=== PATIENT | female | born 1990 | race Caucasian/White ===

== ENCOUNTER → 2022-12-19 10:59 | Outpatient (CLI) | payer OTHER, SELFPAY ==
--- NOTE | 2022-12-19 11:01 | DI.US.S_ITS ---
PROCEDURE: US OB <= 14 WEEKS FETUS INDICATIONS: DATING OUTSIDE/PRIOR DATING DATA: Last menstrual period (LMP): 09/07/2022 LMP-based estimated date of delivery (GERRI): 06/14/2023 First dating scan (date and location): 12/19/2022 Estimated date of delivery (GERRI) from first dating scan: 07/08/2023 The calculations are made using the working GERRI of 07/08/2023. TECHNIQUE: Real-time scanning was performed of the fetus and maternal pelvic organs, with image documentation. COMPARISON: None. FINDINGS: Embryo: Single intrauterine gestational sac is seen with fetus and yolk sac seen. [place]-rump length measures 4.5 cm. Estimated gestational age based on current study is 11 weeks, 2 days. Heart rate: 153 beats per minute. Maternal organs: Left ovary is not visualized. Possible corpus luteum in right ovary is seen. IMPRESSION: 1. Single intrauterine gestation with fetus and yolk sac seen. heart rate is 153 beats per minute. Estimated gestational age based on current study is 11 weeks, 2 days. 2. Possible corpus luteum in right ovary. No adnexal mass or ectopic gestational sac. We strive to produce accurate, complete, and clear reports of imaging services. To assist us in improving patient care, this report was composed using standard report templates and voice recognition software. Therefore, it may contain abnormal punctuation, insertions and/or omissions. Occasional wrong-word or sound-alike substitutions may occur. Though we review the report and make efforts to correct it, we do recommend that the report be read carefully in proper context to recognize any text inaccuracies. Dictated by: Junior Lewis M.D. on 12/19/2022 at 13:11 Approved by: Junior Lewis M.D. on 12/19/2022 at 13:13
== END ==
PROVIDERS: Referring Provider Family Medicine; Visit Provider Family Medicine
DX: Z34.81 Encounter for supervision of other normal pregnancy, first trimester (principal); Z3A.11 11 weeks gestation of pregnancy
CPT/HCPCS: 76801; 76817

== ENCOUNTER → 2022-12-26 10:28 | Outpatient (CLI) | payer OTHER, SELFPAY ==
[2022-12-26 11:35] LABS: Add Manual Diff / Slide Review NO; Basophils Absolute Auto 0 /uL (0-100); Basophils Percent Auto 0.5 % (0-2); Eosinophils Absolute Auto 0 /uL (0-450); Eosinophils Percent Auto 0.4 % (2-4); Hematocrit 34.8 % (36-46); Hemoglobin 11.8 g/dL (12.0-16.0); Lymphocytes Absolute Auto 1500 /uL (1100-4500); Lymphocytes Percent Auto 16.4 % (25-40); Mean Corpuscular HGB Conc 33.9 % (30-36); Mean Corpuscular Hemoglobin 28.2 PG (26-34); Mean Corpuscular Volume 83.2 fL (80-100); Monocytes Absolute Auto 400 /uL (0-900); Monocytes Percent Auto 4.9 % (3-14); Neutrophils Absolute Auto 7200 /uL (1500-7000); Neutrophils Percent Auto 77.8 % (50-75); Platelet Count 328 X10^3/uL (150-400); Red Blood Cell Count 4.18 X10^6/uL (4.0-5.2); Red Cell Distribution Width 16.6 % (11.6-14.8); White Blood Cell Count 9.2 X10^3/uL (4.5-11.0)
[2022-12-26 12:13] LABS: Appearance Urine UA CLEAR; Bilirubin Urine UA NEGATIVE (NEGATIVE); Color Urine UA YELLOW; Glucose Urine UA NEGATIVE (Negative); Ketones Urine UA NEGATIVE (NEGATIVE); Leukocyte Esterase Urine UA NEGATIVE (NEGATIVE); Nitrite Urine UA NEGATIVE (Negative); Occult Blood Urine UA NEGATIVE (Negative); Protein Urine UA NEGATIVE (Negative)
[2022-12-26 12:16] LABS: pH Urine UA 6.5 (4.5-8.0)
[2022-12-26 12:34] LABS: Hepatitis B Surface Antigen NEGATIVE s/c (NEGATIVE); Rubella Antibody IgG 32.9 IU/mL (>15)
[2022-12-26 12:51] LABS: HIV 1 & 2 Ab/Ag 4th Gen Combo NEGATIVE (NEGATIVE); Hep C Virus Ab w/Reflex Quant NEGATIVE s/c (NEGATIVE)
[2022-12-27 04:42] LABS: RPR Screen Non Reactive (Non Reactive)
[2022-12-27 10:27] LABS: Varicella IgG Antibody 817 index (Immune >165)
== END ==
PROVIDERS: Referring Provider Specialist; Visit Provider Specialist
DX: Z34.81 Encounter for supervision of other normal pregnancy, first trimester (principal)
CPT/HCPCS: 36415; 80055; 81003; 86787; 86803; 86850; 86900; 86901; 87086; 87389

== ENCOUNTER → 2023-02-24 14:59 | Outpatient (CLI) | payer OTHER, SELFPAY ==
--- NOTE | 2023-02-24 15:00 | DI.US.S_ITS ---
PROCEDURE: US OB >= 14 WEEKS FETUS INDICATIONS: 20 WEEK ANATOMY SCAN OUTSIDE/PRIOR DATING DATA: Last menstrual period (LMP): 09/07/2022. LMP-based estimated date of delivery (GERRI): 06/14/2023. First dating scan (date and location): 12/19/2022. Estimated date of delivery (GERRI) from first dating scan: 07/08/2023. TECHNIQUE: Real-time scanning was performed of the fetus, with image documentation and biometric measurements. Endovaginal scanning: No COMPARISON: [facility], , OB <= 14 WEEKS FETUS, 12/19/2022, 11:06. FINDINGS: General: A single living intrauterine gestation is present. Presentation: Vertex. Placenta: Placental position is posterior , without previa. Amniotic fluid index: 14.9 cm, normal range is 5-24 cm. Single deepest vertical pocket is 3.6 cm. heart rate: 127 beats per minute. Maternal cervical canal: 4.4 cm long. Normal lower limit is 2.5 cm. biometrics: Biparietal diameter: 52 mm; 21 weeks 5 days Head circumference: 190 mm; 21 weeks 2 days Abdominal circumference: 162 mm; 21 weeks 2 days Femur length: 35 mm; 21 weeks 0 days Clinically estimated gestational age: 20 weeks 6 days Composite gestational age from present scan: 21 weeks 2 days Estimated weight and percentile: 407 g, 65th percentile for gestational age Anatomic survey: Neuro: Ventricles are non-dilated at less than 10 mm. Cisterna magna is normal at 3-11 mm. Cerebellum is normal in size and morphology. Nuchal skin fold: Normal at less than 6 mm between 14-21 weeks gestational age. Face: Nose and lips, facial profile are normal. Spine: No evidence for spina bifida. Heart: Not well seen Diaphragm: Diaphragm is intact. Stomach: Left-sided stomach is present. Kidneys: No hydronephrosis. Normal is less than 5 mm in 2nd trimester, less than 7 mm in 3rd trimester. Cord: 3-vessel cord has orthotopic insertion. Bladder: Normal in size. Extremities: All 4 extremities identified. IMPRESSION: 1. Single living intrauterine gestation. 2. Suboptimal evaluation of the heart and outflow tracts. Otherwise normal survey of anatomy. We strive to produce accurate, complete, and clear reports of imaging services. To assist us in improving patient care, this report was composed using standard report templates and voice recognition software. Therefore, it may contain abnormal punctuation, insertions and/or omissions. Occasional wrong-word or sound-alike substitutions may occur. Though we review the report and make efforts to correct it, we do recommend that the report be read carefully in proper context to recognize any text inaccuracies. Dictated by: Lisa Ying M.D. on 02/24/2023 at 16:29 Approved by: Lisa Ying M.D. on 02/24/2023 at 16:31
== END ==
PROVIDERS: Referring Provider Family Medicine; Visit Provider Family Medicine
DX: Z36.89 Encounter for other specified antenatal screening; Z3A.21 21 weeks gestation of pregnancy
CPT/HCPCS: 76811

== ENCOUNTER → 2023-03-14 16:42 | Outpatient (CLI) | payer OTHER, SELFPAY ==
--- NOTE | 2023-03-14 16:43 | DI.US.S_ITS ---
PROCEDURE: US OB FOLLOW UP INDICATIONS: suboptimal view of heart and outflow on 20week anatomy scan OUTSIDE/PRIOR DATING DATA: Last menstrual period (LMP): 09/07/2022. LMP-based estimated date of delivery (GERRI): 06/14/2023. First dating scan (date and location): 12/19/2022. Estimated date of delivery (GERRI) from first dating scan: 07/08/2023. The calculations are made using the ultrasound GERRI of 07/08/2023. TECHNIQUE: Real-time scanning was performed of the fetus, with image documentation. COMPARISON: OB ultrasound 02/24/2023. FINDINGS: General: A single living intrauterine gestation is present. Presentation: Breech, variable. Placenta: Placental position is posterior, without previa. Amniotic fluid index: 12 cm, normal range is 5-24 cm. Single deepest vertical pocket is 3.5 cm. heart rate: 123 beats per minute. Maternal cervical canal: 3.4 cm long. Normal lower limit is 2.5 cm. Clinically estimated gestational age: 23 weeks 3 days Other: Four-chamber heart view, RVOT, and LVOT appear normal. IMPRESSION: 1. [place] living intrauterine at 23 weeks 3 days based on prior dating. 2. Normal placenta and amniotic fluid. 3. Four-chamber heart view, RVOT, and LVOT appear normal. We strive to produce accurate, complete, and clear reports of imaging services. To assist us in improving patient care, this report was composed using standard report templates and voice recognition software. Therefore, it may contain abnormal punctuation, insertions and/or omissions. Occasional wrong-word or sound-alike substitutions may occur. Though we review the report and make efforts to correct it, we do recommend that the report be read carefully in proper context to recognize any text inaccuracies. Dictated by: Russ Ramey M.D. on 03/15/2023 at 9:41 Approved by: Russ Ramey M.D. on 03/15/2023 at 9:48
== END ==
PROVIDERS: Referring Provider Family Medicine; Visit Provider Family Medicine
DX: Z36.2 Encounter for other antenatal screening follow-up (principal); Z3A.23 23 weeks gestation of pregnancy
CPT/HCPCS: 76816

== ENCOUNTER → 2023-03-29 10:55 | Outpatient (CLI) | payer OTHER, SELFPAY ==
[2023-03-29 13:09] LABS: GTT (PREG) 1 Hour PP 50gm Dose 141 mg/dL (76-139)
== END ==
PROVIDERS: Referring Provider Family Medicine; Visit Provider Family Medicine
DX: Z34.92 Encounter for supervision of normal pregnancy, unspecified, second trimester (principal); Z3A.24 24 weeks gestation of pregnancy
CPT/HCPCS: 36415; 82950

== ENCOUNTER → 2023-04-06 07:56 | Outpatient (CLI) | payer OTHER, SELFPAY ==
[2023-04-06 09:58] LABS: Glucose Fasting 87 mg/dL (70-100)
[2023-04-06 10:13] LABS: Glucose 1 Hour 197 mg/dL (70-170)
[2023-04-06 11:34] LABS: Glucose 2 Hour 128 mg/dL (70-140)
[2023-04-06 13:17] LABS: Glucose Tol Interpretation INTERPRETATION
[2023-04-06 13:26] LABS: Glucose 3 Hour 130 mg/dL (70-115)
== END ==
PROVIDERS: Referring Provider Student in an Organized Health Care Education/Training Program; Visit Provider Student in an Organized Health Care Education/Training Program
DX: O99.810 Abnormal glucose complicating pregnancy (principal)
CPT/HCPCS: 36415; 82951; 82952

== ENCOUNTER → 2023-04-21 10:24 | Outpatient (CLI) | payer OTHER, SELFPAY ==
--- NOTE | 2023-04-21 11:34 | DIAB.GDA ---
Initial Gestational Diabetes Assessment Name: Maria Atwood Date: 04/21/23 Time: 4850-8040a Dx: Gestational Diabetes Provider: Pankaj GERRI: 07/08/23 Weeks: 29 Maria presents for GDM initial visit with partner, Alison. Reports FH of GDM sister, no other immediate family DM hx. Denies any personal hx of DM or GDM. Endorses reduction in sugar with avoiding candy and soda. Does have some clear sodas to help with nausea. Has greatly decreased carb portions since diagnosis, ie 3-4c pasta to 1.5c. With reduced carb portions most BG are in goal. Nausea impacting dietary intake and choices. Choosing small meals due to nauseas and reflux. Diet Recall: 9am: beef jerky or muffin or small portion chips or bagel with cream cheese or breakfast burrito +/- coffee 12-2p: salad with chicken and small [place] OR burger with handful of fries 6-7p: 1.5c carbs with protein and veggies Beverages: 32oz x 3-4, 6-12oz clear soda for nausea Anthropometrics: Ht: 66 Wt: 181# 6oz Prepregnancy wt: 160# Physical Activity: No exercise program. ADLs include walking and stairs at work Self-Monitoring Blood Glucose: Checking 4x per day: FBG and 1 hour. States provider mentioned reduced testing if BG are consistently in goal, which this RD supports if numbers continue in goal. All numbers are consistently in goal, with exception to two elevated after breakfast readings (ie black coffee and burrito = 148mg/dl). Date Pre Post Pre Post Pre Post HS 04/18 90 148 90 78 04/19 90 148 90 78 04/20 87 120 98 93 04/21 80 Diabetes Medications: None Pertinent Labs: Screen: 141 H ; OGTT: 87, 197 H, 128, 130H Nutrition Rx: Plate Method Carbohydrates: Meal: 45-60g lunch and dinner; 30-45g breakfast Snack: 15-30g Nutrition Diagnosis: Altered nutrition related lab value r/t GDM dx aeb recent OGTT Inconsistent energy intake r/t nausea and emesis aeb pt report Intervention: This participant was very receptive. Provided appropriate educational handouts. Discussed the following topics: GDM pathophysiology and impact of hyperglycemia on mom and baby Risk for T2DM for mom and baby in the future Ways to reduce risk T2DM Plate Method, meal timing, carb counting, pairing macronutrients and spreading out CHO for better BG management Blood glucose goals (FBG: <95 and 1 hour <140 mg/dL); importance of checking 4x per day (FBG and pc) Impact of macronutrients on blood glucose Recommended servings for carbohydrates at meals and snacks Recommendations for intake with nausea: choosing bars/shakes prn Potential impact of sugar beverages on BG Weight gain during Role of physical activity and following provider guidelines for safety Goals: Pair CHO and protein at meals and snacks Find ways to be active Aim for 45-60g CHO at lunch and dinner Follow-up: LOBITO VALDEZ follow-up in two weeks Jeanine Lindquist RDN, JOSÉ MIGUEL Certified Diabetes Care and Assisted Living Coordinator T: [phone] F: [phone] [email or web address] Thank you for this referral
== END ==
PROVIDERS: Referring Provider Family Medicine; Visit Provider Family Medicine
DX: O24.419 Gestational diabetes mellitus in pregnancy, unspecified control (principal); Z3A.29 29 weeks gestation of pregnancy; Z71.3 Dietary counseling and surveillance
CPT/HCPCS: 97802

== ENCOUNTER → 2023-05-05 09:39 | Outpatient (CLI) | payer OTHER, SELFPAY ==
--- NOTE | 2023-05-05 10:45 | DIAB.GDFU ---
Follow-up Gestational Diabetes Assessment Name: Maria Atwood Date: 05/05/23 Time: 101030a Dx: Gestational Diabetes Provider: Pankaj GERRI: 07/08/23 Weeks: 31-32 Maria presents for GDM initial visit with partner, Alison. Reports increased BG, especially recent FBG >95. Endorses poor sleep r/t stress with exiting . Poor sleep likely impacting FBG quite a bit, along with increasing hormones as the progresses. Additionally, she report drinking more sugared soda recently due to nausea. Less actual meals lately and more soda could also be impacting elevated BG. Reports nausea, stress, and timing impacting her ability to eat full meals. Looking for quick easy ideas. Open to smoothies/pro shakes. Diet Recall: 12a: nothing or bag of chips or muffin 6-7p keena pasta x 1.5c, chx, green beans or nothing Anthropometrics: Ht: 66 Wt: 179.25# 04/28 at OB office Prepregnancy wt: 160# Physical Activity: No exercise program. Self-Monitoring Blood Glucose: Checking 4x per day: FBG and 1 hour. 2/ last few FBG elevated, 3/5 elevated post breakfast, 1/4 elevated post lunch, 4/6 elevated post dinner. Reports elevations with even 2 toast with butter meal (<40g CHO). Some higher carb intake, ie 1.5c pasta. Overall may be having elevations related to poor sleep, stress, hormones, some higher carb portions especially soda. Date Pre Post Pre Post Pre Post HS 04/27 90 136 165 166 04/28 81 121 123 141 04/30 91 156 98 121 05/01 86 118 127 05/02 95 159 156 05/04 104 159 151 05/05 154 Diabetes Medications: None Pertinent Labs: Screen: 141 H ; OGTT: 87, 197 H, 128, 130H Nutrition Rx: Plate Method Carbohydrates: Meal: 45-60g lunch and dinner; 30-45g breakfast Snack: 15-30g Nutrition Diagnosis: Altered nutrition related lab value r/t GDM dx aeb recent OGTT Inconsistent energy intake r/t nausea and emesis aeb pt report Intervention: This participant was very receptive. Provided appropriate educational handouts. Discussed the following topics: Recent blood sugar results and impact of food and hormones Review of macronutrient recommendations during Pros/cons to Metformin v insulin therapy during Impact of preg hormones and sleep on FBG SF recs on beverages Quick meal and smoothie ideas with pro Goals: Pair CHO and protein at meals and snacks- met/in progress Find ways to be active- not discussed Aim for 45-60g CHO at lunch and dinner- met when eating Switch to sf soda for nausea- new Try smoothie with protein- new Discuss med options or plan with OB today- new Follow-up: LOBITO VALDEZ follow-up in two weeks, sooner if needing insulin therapy education. Today we discussed options for medications if they are needed. Maria would prefer oral medications for Dm management. Encouraged her to discuss further with OB. In general, she is having quite a bit of stress and difficulty with sleep which she does not anticipate will subside soon. Given this, she may be at risk for continued hyperglycemia. Jeanine Lindquist RDN, SABAES Certified Diabetes Care and Lie Detector Operator T: [phone] F: [phone] [email or web address] Thank you for this referral
== END ==
PROVIDERS: Referring Provider Family Medicine; Visit Provider Family Medicine
DX: O24.419 Gestational diabetes mellitus in pregnancy, unspecified control (principal); Z3A.31 31 weeks gestation of pregnancy; Z71.3 Dietary counseling and surveillance
CPT/HCPCS: 97803

== ENCOUNTER → 2023-05-19 08:55 | Outpatient (CLI) | payer OTHER, SELFPAY ==
--- NOTE | 2023-05-19 09:35 | DIAB.GDFU ---
Addendum entered by Jeanine Lindquist 06/15/23 16:44: Note below missing date/time: Date: 05/19/2023 Time: 9-930am Addendum entered by Jeanine Lindquist 05/26/23 16:33: PHone call; 35 weeks now. Has reduced radha bar portions, keeping carbs to one cup at meals, and trying to add afternoon snack. Pairing bars with cheese. One elevated FBG after late night, poor sleep. Overall, BG well managed. Limited hyperglycemia over the last week. No questions at this time. F/u prn. Date Pre Post Pre Post Pre Post 05/20 87 108 150 100 05/21 102 126 132 108 05/22 92 124 167 77 05/23 83 140 134 127 05/24 82 166 124 131 05/25 91 74 104 124 05/26 91 87 106 Original Note: Follow-up Gestational Diabetes Assessment Name: Maria Atwood Date: Time: Dx: Gestational Diabetes Provider: Pankaj GERRI: 07/08/23 Weeks: 33-34 Maria presents for GDM f/u visit with partner, [place] and oldest son. Reports reduced fasting numbers, with exception for this morning. Did not sleep well. Woke up sweating. Did not check BG at that time. Reports high CHO intake with two radha bars (70g CHO) at breakfast and 75-90g CHO at lunch and dinner. Higher carb meals seem to be resulting in some elevations after meals. States she feels she is forcing herself to eat at dinner, so small portions should be an easy change. Started 500mg Metformin. N/V Se with starting med. most days taking with food. Metformin x 1 week. Plans to breastfeed. Scheduled c section 06/30/23. Anthropometrics: Ht: 66 Wt: 180# reported Prepregnancy wt: 160# Physical Activity: No exercise program. Self-Monitoring Blood Glucose: Checking 4x per day: FBG and 1 hour. 06/17 last few FBG elevated, 2/8 elevated post breakfast, 4/8 elevated post lunch, 1/7 elevated post dinner. Missing some data due to running out of strips. Date Pre Post Pre Post Pre Post HS 05/08 93 141 161 128 05/09 92 132 128 149 05/10 86 124 149 119 05/11 88 93 176 109 2 82 2/3 77 183 143 2/5 83 150 127 133 2/6 82 102 119 133 2/7 86 130 2/8 130 116 2/9 113 Diabetes Medications: 500mg Metformin Pertinent Labs: Screen: 141 H ; OGTT: 87, 197 H, 128, 130H Nutrition Rx: Plate Method Carbohydrates: Meal: 45-60g lunch and dinner; 30-45g breakfast Snack: 15-30g Nutrition Diagnosis: Altered nutrition related lab value r/t GDM dx aeb recent OGTT Inconsistent energy intake r/t nausea and emesis aeb pt report- improved Excessive CHO intake r/t nutrition knowledge deficit aeb diet recall and hyperglycemia Intervention: This participant was very receptive. Provided appropriate educational handouts. Discussed the following topics: Recent blood sugar results and impact of food and hormones Review of macronutrient recommendations during Benefits, resources, and nutrition for recommendations for nutrition and physical activity recommendations for T2DM risk reduction OGTT at 6-12 weeks Checking blood sugars twice per week (goal: fasting <100 mg/dL and 2 hour pc <140 mg/dL) until 6 week check-up HgA1c q 1-3 years. Encouraged consistent intake q 3-4 hours Encouraged aking Metformin with food consider BG check when waking up heavily sweating Goals: Switch to sf soda for nausea- met Try smoothie with protein- met Discuss med options or plan with OB today- met Keep radha bar to one per sitting- new Keep carbs to 1c at meals- new Add afternoon snack prn- new Follow-up: Asked Maria to send RD BG in one week for review. She agreed. States she feels she does not need further Dm ed follow-up thereafter. Will reevaluate after review of BG. Jeanine Lindquist RDN, [facility] Certified Diabetes Care and Urologist Physician T: [phone] F: [phone] [email or web address] Thank you for this referral
== END ==
PROVIDERS: Referring Provider Family Medicine; Visit Provider Family Medicine
DX: O24.415 Gestational diabetes mellitus in pregnancy, controlled by oral hypoglycemic drugs (principal); Z3A.33 33 weeks gestation of pregnancy; Z71.3 Dietary counseling and surveillance
CPT/HCPCS: 97803

== ENCOUNTER → 2023-05-23 10:02 | Outpatient (CLI) | payer OTHER, SELFPAY ==
--- NOTE | 2023-05-23 10:03 | DI.US.S_ITS ---
PROCEDURE: US OB LIMITED INDICATIONS: GESTATIONAL DIABETES - GROWTH CHECK OUTSIDE/PRIOR DATING DATA: Last menstrual period (LMP): 09/07/2022 LMP-based estimated date of delivery (GERRI): 06/14/2023 First dating scan (date and location): 12/19/2022 Estimated date of delivery (GERRI) from first dating scan: 07/08/2023. The calculations are made using the ultrasound GERRI of 07/08/2023. TECHNIQUE: Real-time scanning was performed of the fetus, with image documentation and biometric measurements. Endovaginal scanning: Not performed. COMPARISON: [facility], OB FOLLOW UP, 03/14/2023, 16:54. FINDINGS: General: A single living intrauterine gestation is present. Presentation: Vertex Placenta: Placental position is posterior, without previa. Amniotic fluid index: 16.7 cm, normal range is 5-24 cm. Single deepest vertical pocket is 5.1 cm. heart rate: 132 beats per minute. Maternal cervical canal: Not well visualized. biometrics: Biparietal diameter: 9.3 cm, 37 weeks 6 days Head circumference: 32.7 cm, 37 weeks 1 day Abdominal circumference: 30.2 cm, 34 weeks 1 day Femur length: 6.2 cm, 32 weeks 1 day Clinically estimated gestational age: 33 weeks 3 days Composite gestational age from present scan: 35 weeks 2 days Estimated weight and percentile: 2374 g, 66th percentile Other: Not applicable. IMPRESSION: 1. Single live intrauterine . 2. Estimated weight is 2374 g, 66th percentile for gestational age. Of note, biparietal diameter and head circumference are greater than the 90th percentile for gestational age, and femur length is at the 10th percentile. 3. Amniotic fluid index is within normal limits at 16.7 cm. Approved by: Smith Jaramillo M.D. on 05/23/2023 at 15:09
== END ==
LOC: US 10:02
PROVIDERS: Referring Provider Family Medicine; Visit Provider Family Medicine
DX: O24.415 Gestational diabetes mellitus in pregnancy, controlled by oral hypoglycemic drugs (principal); Z3A.35 35 weeks gestation of pregnancy
CPT/HCPCS: 76815

== ENCOUNTER 2023-05-23 10:04 | Outpatient (CLI) | payer OTHER, SELFPAY ==
--- NOTE | 2023-05-23 11:00 | P.TNLD_ITS ---
Visit Information Visit Information Date of evaluation: 05/23/23 Primary OB Provider: Patrice Lira Reason for Evaluation: Yes non-stress test non-stress test reason: diabetes (GDMA2 on metformin) [facility] Medical History (Updated 05/12/23 @ 18:28 by Patrice Lira MD) PTSD (post-traumatic stress disorder) (~2019) Sciatica Eczema (~2017) Depression (~2019) Anxiety (~2019) Surgical History (Updated 05/12/23 @ 18:28 by Patrice Lira MD) Previous section (~01/08/15) [place] teeth extracted Family History (Updated 01/06/23 @ 19:53 by Jessica Saucedo) Mother Hypertension Mental health problem Sister Hypertension Social History marital status: unmarried,living together number of children: 1 household members: significant other lives independently: Yes caregiver/support person: Yes housing: apartment pets and animals: Yes education level: college (associate's degree) occupational status: employed (active duty, [employer]) current occupational exposures/hazards: No (not since becoming ) special debbie needs: No travel history: over 6 months ago seatbelt use: always water heater temp set < 120 deg: Yes working smoke detector in home: Yes fire extinguisher in home: Yes carbon monox detector in home: Yes firearms in home: No do you feel safe at home: Yes Smoking Status: Never smoker second hand exposure: Yes (s/o vapes in the home) alcohol intake: former (rarely when not ) substance use type: does not use during the past year weight has: other (fluctuates) well-balanced diet: daily or most days daily servings fruits/ve or more times/day caffeine: Yes (2 cups coffee/day) Type(s) of exercise: walking Evaluation Evaluation Baseline heart rate: 130 Variability: Moderate (11-25) monitor accelerations: Present Monitor Decelerations: Absent Contraction Frequency (minutes): 7 Uterine Contraction Intensity: Mild Category of Tracing: Reactive Status: Category l Diagnosis, Plan/Disposition Final Diagnosis (1) Gestational diabetes mellitus (GDM) controlled on oral hypoglycemic drug: Status: Acute (2) High-risk in third trimester: Status: Acute Plan/Disposition Plan: NST reactive, Category 1. Continue routine weekly testing. OB Disposition: home
== END 2023-05-23 10:55 | disposition home or self-care (01) ==
LOC: OB 05-29 06:47
PROVIDERS: Referring Provider Family Medicine; Visit Provider Family Medicine
DX: O24.415 Gestational diabetes mellitus in pregnancy, controlled by oral hypoglycemic drugs (principal); Z3A.33 33 weeks gestation of pregnancy
CPT/HCPCS: 59025; 76815; G0378; G0379

== ENCOUNTER 2023-06-02 10:04 | Outpatient (CLI) | payer OTHER, SELFPAY ==
--- NOTE | 2023-06-02 11:25 | PM.OBTRLD ---
Visit Information Visit Information Date of evaluation: 06/02/23 Primary OB Provider: Patrice Lira Reason for Evaluation: Yes non-stress test non-stress test reason: diabetes (GDMA2 on metformin) [facility] Medical History (Updated 06/16/23 @ 21:10 by Patrice Lira MD) PTSD (post-traumatic stress disorder) (~2019) Sciatica Eczema (~2017) Depression (~2019) Anxiety (~2019) Surgical History (Updated 05/12/23 @ 18:28 by Patrice Lira MD) Previous section (~01/08/15) [place] teeth extracted Family History (Updated 01/06/23 @ 19:53 by Jessica Saucedo) Mother Hypertension Mental health problem Sister Hypertension Social History marital status: unmarried,living together number of children: 1 household members: significant other lives independently: Yes caregiver/support person: Yes housing: apartment pets and animals: Yes education level: college (associate's degree) occupational status: employed (active duty, [employer]) current occupational exposures/hazards: No (not since becoming ) special debbie needs: No travel history: over 6 months ago seatbelt use: always water heater temp set < 120 deg: Yes working smoke detector in home: Yes fire extinguisher in home: Yes carbon monox detector in home: Yes firearms in home: No do you feel safe at home: Yes Smoking Status: Never smoker second hand exposure: Yes (s/o vapes in the home) alcohol intake: former (rarely when not ) substance use type: does not use during the past year weight has: other (fluctuates) well-balanced diet: daily or most days daily servings fruits/ve or more times/day caffeine: Yes (2 cups coffee/day) Type(s) of exercise: walking Evaluation Evaluation Baseline heart rate: 130 Variability: Moderate (11-25) monitor accelerations: Present Monitor Decelerations: Absent Category of Tracing: Reactive Status: Category l Diagnosis, Plan/Disposition Final Diagnosis (1) screening encounter: Status: Acute (2) High-risk in third trimester: Status: Acute (3) Gestational diabetes mellitus (GDM) controlled on oral hypoglycemic drug: Status: Acute Plan/Disposition Plan: NST reactive, FHT category 1. Continue routine weekly testing. OB Disposition: home
== END 2023-06-02 10:45 | disposition home or self-care (01) ==
LOC: LABOR 10:23 → OB 06-28 15:08
PROVIDERS: Referring Provider Family Medicine; Visit Provider Family Medicine
DX: O24.415 Gestational diabetes mellitus in pregnancy, controlled by oral hypoglycemic drugs (principal); Z3A.34 34 weeks gestation of pregnancy
CPT/HCPCS: 59025; G0378; G0379

== ENCOUNTER 2023-06-09 10:35 | Outpatient (CLI) | payer OTHER, SELFPAY ==
--- NOTE | 2023-06-09 11:30 | PM.OBTRLD ---
Visit Information Visit Information Date of evaluation: 06/09/23 Primary OB Provider: Patrice Lira Reason for Evaluation: Yes non-stress test non-stress test reason: diabetes (GDMA2 on metformin) Comments/Additional reasons for admission: 22yo at [place] 35+6 presents for routine NST. complicated by GDM on metformin 500 mg b.i.d., h/o CS x1. [facility] Medical History (Updated 06/16/23 @ 21:10 by Patrice Lira MD) PTSD (post-traumatic stress disorder) (~2019) Sciatica Eczema (~2017) Depression (~2019) Anxiety (~2019) Surgical History (Updated 05/12/23 @ 18:28 by Patrice Lira MD) Previous section (~01/08/15) [place] teeth extracted Family History (Updated 01/06/23 @ 19:53 by Jessica Saucedo) Mother Hypertension Mental health problem Sister Hypertension Social History marital status: unmarried,living together number of children: 1 household members: significant other lives independently: Yes caregiver/support person: Yes housing: apartment pets and animals: Yes education level: college (associate's degree) occupational status: employed (active duty, aviation ordinance) current occupational exposures/hazards: No (not since becoming ) special debbie needs: No travel history: over 6 months ago seatbelt use: always water heater temp set < 120 deg: Yes working smoke detector in home: Yes fire extinguisher in home: Yes carbon monox detector in home: Yes firearms in home: No do you feel safe at home: Yes Smoking Status: Never smoker second hand exposure: Yes (s/o vapes in the home) alcohol intake: former (rarely when not ) substance use type: does not use during the past year weight has: other (fluctuates) well-balanced diet: daily or most days daily servings fruits/ve or more times/day caffeine: Yes (2 cups coffee/day) Type(s) of exercise: walking Evaluation Evaluation Baseline heart rate: 130 Variability: Moderate (11-25) monitor accelerations: Present Monitor Decelerations: Absent Category of Tracing: Reactive Status: Category l Diagnosis, Plan/Disposition Final Diagnosis (1) screening encounter: Status: Acute (2) High-risk in third trimester: Status: Acute (3) Gestational diabetes mellitus (GDM) controlled on oral hypoglycemic drug: Status: Acute Plan/Disposition Plan: NST reactive, FHT category 1. Continue routine weekly testing. OB Disposition: home
== END 2023-06-09 11:25 | disposition home or self-care (01) ==
LOC: OB 06-12 11:09
PROVIDERS: Referring Provider Family Medicine; Visit Provider Family Medicine
DX: O24.415 Gestational diabetes mellitus in pregnancy, controlled by oral hypoglycemic drugs (principal); Z3A.35 35 weeks gestation of pregnancy
CPT/HCPCS: 59025; G0378; G0379

== ENCOUNTER 2023-06-13 15:59 | Outpatient (CLI) | payer OTHER, SELFPAY ==
--- NOTE | 2023-06-13 17:35 | PM.OBTRLD ---
Visit Information Visit Information Date of evaluation: 06/13/23 Primary OB Provider: Patrice Lira Reason for Evaluation: Yes other Comments/Additional reasons for admission: 32yo at [place] 36+3 presents from home due to concern for decreased air movement. Was stepping out of shower when she slipped, fell on her left side and hit side of abdomen on floor 2 nights ago. She is feeling some abdominal tightness/contractions. Denies vaginal bleeding, leakage of fluid. complicated by GDM on metformin, h/o CS x1. [facility] Medical History (Updated 06/16/23 @ 21:36 by Patrice Lira MD) PTSD (post-traumatic stress disorder) (~2019) Sciatica Eczema (~2017) Depression (~2019) Anxiety (~2019) Surgical History (Updated 05/12/23 @ 18:28 by Patrice Lira MD) Previous section (~01/08/15) [place] teeth extracted Family History (Updated 01/06/23 @ 19:53 by Jessica Saucedo) Mother Hypertension Mental health problem Sister Hypertension Social History marital status: unmarried,living together number of children: 1 household members: significant other lives independently: Yes caregiver/support person: Yes housing: apartment pets and animals: Yes education level: college (associate's degree) occupational status: employed (active duty, aviation ordinance) current occupational exposures/hazards: No (not since becoming ) special debbie needs: No travel history: over 6 months ago seatbelt use: always water heater temp set < 120 deg: Yes working smoke detector in home: Yes fire extinguisher in home: Yes carbon monox detector in home: Yes firearms in home: No do you feel safe at home: Yes Smoking Status: Never smoker second hand exposure: Yes (s/o vapes in the home) alcohol intake: former (rarely when not ) substance use type: does not use during the past year weight has: other (fluctuates) well-balanced diet: daily or most days daily servings fruits/ve or more times/day caffeine: Yes (2 cups coffee/day) Type(s) of exercise: walking Evaluation Evaluation Baseline heart rate: 120 Variability: Moderate (11-25) monitor accelerations: Present Monitor Decelerations: Absent Contraction Frequency (minutes): 5 Uterine Contraction Intensity: Mild Category of Tracing: Reactive Status: Category l Cervical dilation (cm): 0 Cervical effacement (%): 0 station: -4 Comments: Cervical exam per L&D RN Diagnosis, Plan/Disposition Final Diagnosis (1) Decreased movement affecting management of in third trimester: Status: Acute (2) Trauma during : Status: Acute Plan/Disposition Plan: NST reactive, FHT category 1. Patient now feeling baby move normally. She is having mhpa-qw-rqhgachx contractions every 3-5 minutes but no cervical change on exam. Discharge home with labor precautions. OB Disposition: home
== END 2023-06-13 17:10 | disposition home or self-care (01) ==
LOC: OB 06-16 10:00
PROVIDERS: Referring Provider Family Medicine; Visit Provider Family Medicine
DX: O36.8130 Decreased fetal movements, third trimester, not applicable or unspecified (principal); O24.419 Gestational diabetes mellitus in pregnancy, unspecified control; Z3A.36 36 weeks gestation of pregnancy; O47.03 False labor before 37 completed weeks of gestation, third trimester
CPT/HCPCS: 59025; G0378; G0379

== ENCOUNTER 2023-06-16 10:11 | Outpatient (CLI) | payer OTHER, SELFPAY ==
--- NOTE | 2023-06-16 18:53 | P.TNLD_ITS ---
Visit Information Visit Information Date of evaluation: 06/16/23 Primary OB Provider: Patrice Lira Reason for Evaluation: Yes non-stress test non-stress test reason: diabetes (GDMA2 on metformin) [facility] Medical History (Updated 05/12/23 @ 18:28 by Patrice Lira MD) PTSD (post-traumatic stress disorder) (~2019) Sciatica Eczema (~2017) Depression (~2019) Anxiety (~2019) Surgical History (Updated 05/12/23 @ 18:28 by Patrice Lira MD) Previous section (~01/08/15) [place] teeth extracted Family History (Updated 01/06/23 @ 19:53 by Jessica Saucedo) Mother Hypertension Mental health problem Sister Hypertension Social History marital status: unmarried,living together number of children: 1 household members: significant other lives independently: Yes caregiver/support person: Yes housing: apartment pets and animals: Yes education level: college (associate's degree) occupational status: employed (active duty, aviation ordinance) current occupational exposures/hazards: No (not since becoming ) special debbie needs: No travel history: over 6 months ago seatbelt use: always water heater temp set < 120 deg: Yes working smoke detector in home: Yes fire extinguisher in home: Yes carbon monox detector in home: Yes firearms in home: No do you feel safe at home: Yes Smoking Status: Never smoker second hand exposure: Yes (s/o vapes in the home) alcohol intake: former (rarely when not ) substance use type: does not use during the past year weight has: other (fluctuates) well-balanced diet: daily or most days daily servings fruits/ve or more times/day caffeine: Yes (2 cups coffee/day) Type(s) of exercise: walking Evaluation Evaluation Baseline heart rate: 130 Variability: Moderate (11-25) monitor accelerations: Present Monitor Decelerations: Absent Contraction Frequency (minutes): 6 Uterine Contraction Intensity: Mild Category of Tracing: Reactive Status: Category l Diagnosis, Plan/Disposition Final Diagnosis (1) Gestational diabetes mellitus (GDM) controlled on oral hypoglycemic drug: Status: Acute (2) High-risk in third trimester: Status: Acute Plan/Disposition Plan: NST reactive, Category 1. No cervical change from uterine contractions. Continue routine weekly testing. OB Disposition: home
== END 2023-06-16 10:51 | disposition home or self-care (01) ==
LOC: LABOR 10:51 → OB 06-20 15:08
PROVIDERS: Referring Provider Family Medicine; Visit Provider Family Medicine
DX: O24.415 Gestational diabetes mellitus in pregnancy, controlled by oral hypoglycemic drugs (principal); Z3A.36 36 weeks gestation of pregnancy
CPT/HCPCS: 59025; G0378; G0379

== ENCOUNTER 2023-06-23 10:25 | Outpatient (CLI) | payer OTHER, SELFPAY ==
--- NOTE | 2023-06-23 10:53 | PM.OBTRLD ---
Visit Information Visit Information Date of evaluation: 06/23/23 Primary OB Provider: Patrice Lira Reason for Evaluation: Yes non-stress test non-stress test reason: diabetes (GDMA2 on metformin) Comments/Additional reasons for admission: 22yo at [place] 37+6 presents for routine NST. complicated by GDM on metformin 500 mg b.i.d., h/o CS x1. [facility] Medical History (Updated 06/16/23 @ 21:36 by Patrice Lira MD) PTSD (post-traumatic stress disorder) (~2019) Sciatica Eczema (~2017) Depression (~2019) Anxiety (~2019) Surgical History (Updated 05/12/23 @ 18:28 by Patrice Lira MD) Previous section (~01/08/15) [place] teeth extracted Family History (Updated 01/06/23 @ 19:53 by Jessica Saucedo) Mother Hypertension Mental health problem Sister Hypertension Social History marital status: unmarried,living together number of children: 1 household members: significant other lives independently: Yes caregiver/support person: Yes housing: apartment pets and animals: Yes education level: college (associate's degree) occupational status: employed (active duty, aviation ordinance) current occupational exposures/hazards: No (not since becoming ) special debbie needs: No travel history: over 6 months ago seatbelt use: always water heater temp set < 120 deg: Yes working smoke detector in home: Yes fire extinguisher in home: Yes carbon monox detector in home: Yes firearms in home: No do you feel safe at home: Yes Smoking Status: Never smoker second hand exposure: Yes (s/o vapes in the home) alcohol intake: former (rarely when not ) substance use type: does not use during the past year weight has: other (fluctuates) well-balanced diet: daily or most days daily servings fruits/ve or more times/day caffeine: Yes (2 cups coffee/day) Type(s) of exercise: walking Review of Systems Review of Systems ROS: Yes All systems reviewed with the patient and are negative except as otherwise documented Evaluation Evaluation Baseline heart rate: 135 Variability: Moderate (11-25) monitor accelerations: Present Monitor Decelerations: Absent Contraction Frequency (minutes): 7 Uterine Contraction Intensity: Mild Category of Tracing: Reactive Status: Category l Diagnosis, Plan/Disposition Final Diagnosis (1) screening encounter: Status: Acute (2) Gestational diabetes mellitus (GDM) controlled on oral hypoglycemic drug: Status: Acute (3) Previous delivery affecting : Status: Chronic (4) High-risk in third trimester: Status: Acute Plan/Disposition Plan: NST reactive, FHT category 1. Continue routine weekly testing. OB Disposition: home
== END 2023-06-23 10:55 | disposition home or self-care (01) ==
LOC: LABOR 11:02 → OB 06-27 09:47
PROVIDERS: Referring Provider Family Medicine; Visit Provider Family Medicine
DX: O24.415 Gestational diabetes mellitus in pregnancy, controlled by oral hypoglycemic drugs (principal); O34.219 Maternal care for unspecified type scar from previous cesarean delivery; O09.93 Supervision of high risk pregnancy, unspecified, third trimester; Z3A.37 37 weeks gestation of pregnancy
CPT/HCPCS: 59025; G0378; G0379

== ENCOUNTER 2023-06-29 10:38 | Observation (INO) | payer OTHER, SELFPAY ==
[2023-06-29] MEDS: MORPHINE 10 MG/ML INJ IM (12:40)
[2023-06-29] MEDS: hydrOXYzine 50 MG/ML INJ 25 MG IM (12:40)
== END 2023-06-29 12:56 | disposition home or self-care (01) ==
PROVIDERS: Admitting Provider Family Medicine; Referring Provider Family Medicine; Visit Provider Family Medicine
DX: O24.415 Gestational diabetes mellitus in pregnancy, controlled by oral hypoglycemic drugs (principal); O47.1 False labor at or after 37 completed weeks of gestation; Z3A.38 38 weeks gestation of pregnancy
CPT/HCPCS: 59025; 59050; 96372; G0378; G0379; J2270; J3410

== ENCOUNTER 2023-06-30 05:12 | Inpatient (IN) | payer OTHER, SELFPAY ==
--- NOTE | 2023-06-30 00:14 | P.HPOB_ITS ---
OB HPI Date/Time Date of admission: 06/30/23 Date Patient Seen: 06/30/23 Time Patient Seen: 08:45 History of Present Condition Chief complaint: INPT C SECTION GERRI Calculator 2 Estimated Delivery Date Method Current WG Current Estimate 07/08/23 Ultrasound #1 38w 6d Other Estimates 06/15/23 LMP (Certain) 42w 1d Estimated Gestational Age (weeks): 38 : 3 Para: 1 Narrative: Maria is a 32-year-old at GA 38+ 6 weeks presenting for scheduled erLTCS. She endorses normal movement. Has been experiencing cxyf-el-fkebazwj contractions without cervical dilation for the past couple of weeks. Denies vaginal bleeding, leakage of fluid. complicated by GDM A2 on metformin 500 mg daily, depression/ anxiety (weaned from all medications), previous CS x1. care: good care Dating criteria OB: based on 1st trimester US only Ultrasounds: normal 1st trimester US and normal mid trimester US Obstetrical complications: gestational diabetes (on metformin 500 mg b.i.d.) Medical complications OB: psychiatric ( anxiety, depression) Indications Operative indications ( section): previous uterine surgery Preadmission Labs Last OB Lab Results: 2 Blood Type O Positive 06/30/23 06:28 Antibody Screen Negative 06/30/23 06:28 Hematocrit 31.2 % (36-46) L 06/30/23 06:28 Hemoglobin 10.4 g/dL (12.0-16.0) L 06/30/23 06:28 Hepatitis B Surface Antigen Negative s/c (NEGATIVE) 12/26/22 10 :32 Hepatitis C Antibody Negative s/c (NEGATIVE) 12/26/22 10:32 Rubella Antibody 32.9 IU/mL (>15) 12/26/22 10:32 Varicella-Zoster IgG Antibody 817 index (Immune >165) 12/26/22 10:32 Glucose 1 Hour 141 mg/dL (76-139) H 03/29/23 11:03 Glucose Tolerance Testin hr (elevated) and 2 hr (elevated) Prior (ies) Past Pregnancies Del. Date GA/Weeks Labor Lgth Wt Sex Route Outcome Anesthesia Place Delv Breastfeed Preg Comp Name 01/08/15 41 48 7 lb 8 oz Male live - full term [place] 4 months none [place] 05/11/22 6 elective Delivery Date: 05/11/22 Last Updated by: Robyn Dubose RN completed w/ PO meds, no complications Evaluation Evaluation Baseline heart rate: 130 Variability: Moderate (11-25) monitor accelerations: Present Monitor Decelerations: Absent Contraction Frequency (minutes): 7 Uterine Contraction Intensity: Mild Category of Tracing: Reactive Status: Category l PFSH Medical History (Updated 06/16/23 @ 21:36 by Patrice Lira MD) PTSD (post-traumatic stress disorder) (~2019) Sciatica Eczema (~2017) Depression (~2019) Anxiety (~2019) Surgical History (Updated 05/12/23 @ 18:28 by Patrice Lira MD) Previous section (~01/08/15) [place] teeth extracted Family History (Updated 01/06/23 @ 19:53 by Jessica Saucedo) Mother Hypertension Mental health problem Sister Hypertension Social History marital status: unmarried,living together number of children: 1 household members: significant other lives independently: Yes caregiver/support person: Yes housing: apartment pets and animals: Yes education level: college (associate's degree) occupational status: employed (active duty, aviation ordinance) current occupational exposures/hazards: No (not since becoming ) special debbie needs: No travel history: over 6 months ago seatbelt use: always water heater temp set < 120 deg: Yes working smoke detector in home: Yes fire extinguisher in home: Yes carbon monox detector in home: Yes firearms in home: No do you feel safe at home: Yes Smoking Status: Former smoker second hand exposure: Yes (s/o vapes in the home) alcohol intake: former (rarely when not ) substance use type: does not use during the past year weight has: other (fluctuates) well-balanced diet: daily or most days daily servings fruits/ve or more times/day caffeine: Yes (2 cups coffee/day) Type(s) of exercise: walking Meds Home Medications and Allergies Home Medications Medication Instructions Recorded Confirmed Type duloxetine 60 mg capsule,delayed 60 mg PO DAILY 12/15/22 06/30/23 History release vit no.95-ferrous 1 tab PO DAILY 12/15/22 06/30/23 History fumarate 28 mg-folic acid 800 mcg tablet ( Multivitamins) pyridoxine (vitamin B6) 50 mg 50 mg PO TID nausea #90 tabs 12/23/22 06/30/23 Rx tablet blood sugar diagnostic (Blood #50 ea 04/14/23 06/30/23 Rx Glucose Test strips) blood-glucose meter #1 ea 04/14/23 06/30/23 Rx lancets (Lancets,Ultra Thin) #200 ea 04/18/23 06/30/23 Rx metformin 500 mg tablet 500 mg PO DAILY #90 tabs 05/15/23 06/30/23 Rx ondansetron 4 mg disintegrating See Rx Instructions PO Q8H PRN 06/09/23 06/30/23 Rx tablet nausea and vomiting #30 tabs doxylamine succinate 25 mg tablet 25 mg PO BEDTIME PRN sleep #30 tabs 06/16/23 06/30/23 Rx (Unisom (doxylamine)) Allergies Allergy/AdvReac Type Severity Reaction Status Date / Time No Known Drug Allergies Allergy Verified 06/30/23 06:17 Review of Systems Review of Systems ROS: Yes All systems reviewed with the patient and are negative except as otherwise documented OB Exam Narrative Exam Narrative: General: Well-nourished, no distress HEENT: NC/AT, EOMI, moist mucous membranes CV: RRR, normal S1 S2, no m/g/r Resp: CTAB Abd: Gravid, soft, NTND, +BS Ext: Full ROM, no edema Skin: No rash or lesions Neuro: A&O x3, normal tone, no focal deficits Objective Labs 06/30/23 06:28 Assessment and Plan Assessment and Plan Assessment and Plan narrative: 32-year-old at [place] 38+6 weeks presenting for scheduled erLTCS. complicated by GDM A2 on metformin 500 mg daily, depression/ anxiety (weaned from medications), previous CS x1. -admit to L&D -ancef 2g pre-op -PPH risk low -VTE risk low, SCDs with epidural -consented to delivery Time Spent with Patient Total time spent with greater than 50% in coordination of care (as documented) at patient's floor/unit and/or counseling patient:: 15-24 minutes
[2023-06-30 06:32] VITALS: BP 121/73
[2023-06-30 06:33] LABS: Add Manual Diff / Slide Review NO; Basophils Absolute Auto 100 /uL (0-100); Basophils Percent Auto 0.8 % (0-2); Eosinophils Absolute Auto 100 /uL (0-450); Eosinophils Percent Auto 0.9 % (2-4); Hematocrit 31.2 % (36-46); Hemoglobin 10.4 g/dL (12.0-16.0); Lymphocytes Absolute Auto 1800 /uL (1100-4500); Lymphocytes Percent Auto 14.5 % (25-40); Mean Corpuscular HGB Conc 33.3 % (30-36); Mean Corpuscular Hemoglobin 26.4 PG (26-34); Mean Corpuscular Volume 79.1 fL (80-100); Monocytes Absolute Auto 1200 /uL (0-900); Monocytes Percent Auto 9.3 % (3-14); Neutrophils Absolute Auto 9400 /uL (1500-7000); Neutrophils Percent Auto 74.5 % (50-75); Platelet Count 216 X10^3/uL (150-400); Red Blood Cell Count 3.94 X10^6/uL (4.0-5.2); Red Cell Distribution Width 16.8 % (11.6-14.8); White Blood Cell Count 12.6 X10^3/uL (4.5-11.0)
[2023-06-30] MEDS: hydrOXYzine 50 MG/ML INJ 25 MG IM (07:08)
[2023-06-30] MEDS: MORPHINE 4 MG/ML INJ IV (07:08)
[2023-06-30] MEDS: CITRIC ACID/SODIUM CITRATE 15 ML SOLUTION 30 ML PO (09:04)
[2023-06-30] MEDS: LACTATED RINGERS 1,000 ML 999 ML IV (09:04)
[2023-06-30] MEDS: CEFAZOLIN 2 GM/100 ML PREMIX 100 ML IV (11:20)
[2023-06-30] MEDS: ACETAMINOPHEN IV 1,000 MG/100 ML VIAL 400 MG IV (11:37)
--- NOTE | 2023-06-30 11:53 | SUR.OPER ---
Supine on Padded OR bed, head on pillow, safety belt at thigh, arms secured on padded arm boards at <90 degrees abduction. Bump under right buttock. Legs uncrossed with pillow under knees, gel pad to heels, tape over blanket to lower legs.
--- NOTE | 2023-06-30 12:18 | SUR.OPER ---
Addendum entered by Radha Hadley R.N. 06/30/23 12:24: Vacuum extraction delivery kit utilized x1. Original Note: FHR pre-procedure = 132 BPM. Viable baby boy born at 1208. Placenta delivered at 1211. Cord blood and placenta given to OB RN. APGARS: 9/9.
[2023-06-30] MEDS: LACTATED RINGERS 1,000 ML 42 ML IV (12:54)
[2023-06-30 13:17] VITALS: BP 124/76; PULSE 78; RESP 20; TEMP 36.3; O2SAT 100
[2023-06-30 13:22] VITALS: BP 119/72; PULSE 71; RESP 12; O2SAT 100
[2023-06-30 13:32] VITALS: BP 119/72; PULSE 71; RESP 18; O2SAT 100
[2023-06-30] MEDS: OXYCODONE IR 5 MG TABLET PO ×3 (13:33→21:33)
--- NOTE | 2023-06-30 13:34 | P.OP_ITS ---
Operative Date/Time/Diagnoses Date of procedure: 06/30/23 Time of procedure: 11:55 Pre-op diagnosis: Previous , GDM A2 Post-op diagnosis: same (delivered) Procedure & Clinicians Procedure: Repeat low transverse section Same procedure as scheduled: Yes Indications: Previous delivery Surgeon: Patrice Lira Click Yes if Unassisted: No Manager Employee Benefits: [employer] Reason for Manager Employee Benefits: Manager Employee Benefits required for the safe, effective, and timely completion of this surgery. Anesthesia Type: Spinal Operative Notes Findings: Single live male in the cephalic position Closure Type: primary Specimen(s): cord blood Intraoperative meds administered: Acetaminophen and Duramorph Estimated Blood Loss (mL): 870 Blood products transfused: none Procedure in detail: Patient was taken to the operating room where spinal anesthesia was found to be adequate. She was then prepared and draped in the usual sterile fashion in the dorsal supine position with a leftward tilt. A Pfannenstiel incision was then made with a scalpel and carried through to the underlying layer of fascia sharply. The fascia was nicked in the midline, and the incision extended laterally with Wooten scissors. The superior aspect of the fascial incision was then grasped with Duarte clamps, elevated, and the underlying rectus muscles dissected off bluntly. Attention was then turned to the inferior aspect of the incision which, in similar fashion, was grasped, tented up with Duarte clamps, and rectus muscles dissected off bluntly. The rectus muscles were then in the midline, and peritoneum identified, tented up, and entered sharply with Metzenbaum scissors. The peritoneal opening was then extended superiorly and inferiorly with good visualization of the bladder. Significant vesicouterine adhesions were noted to be attached to the superior aspect of the right side of the uterus. These were individually identified and then taken down using the Bovie. The bladder blade was then inserted and the vesicouterine peritoneum identified, grasped with pickups, and entered sharply with Metzenbaum scissors. This incision was then extended laterally and the bladder flap created digitally. The bladder blade was then reinserted and the lower uterine segment incised in a transverse fashion with the scalpel. The uterine incision was then extended laterally with blunt traction. Upon entering the amniotic sac there was moderate amount of clear amniotic fluid. The bladder blade was removed and the head was noted to be engaged in the maternal pelvis. The left rectus muscle was cut with bandage scissors in order to create more space for delivery. Vacuum suction was required to lift the head out of the maternal pelvis, after which it delivered atraumatically. The nose and mouth were suctioned with bulb suction, and the remainder of the body delivered without difficulty. The cord was clamped and cut, and the infant was handed off to the waiting care team. Cord blood was collected and sent. The placenta was then removed by manual expression; the uterus was exteriorized and cleared of all clots and debris. The uterine incision was repaired with 0 Vicryl in a running, locked fashion. A second layer of same suture was used to obtain excellent hemostasis. Tubes and ovaries were examined and were found to be normal, and the uterus returned to the abdomen. The gutters were cleared of all clots, and the rectus muscle reapproximated with with 0 Vicryl. The fascia was reapproximated with 0 Vicryl in a running fashion. The subcutaneous layer was copiously irrigated with warm normal saline. The subcutaneous fat was reapproximated with 3-0 Vicryl. The skin was closed with 3-0 Monocryl. Steri-Strips were applied to the incision and an Aquacel dressing was placed. The uterus was expressed of a small amount of old blood. Sponge, lap, and needle counts were correct x2. The patient tolerated the procedure well and was taken to the recovery room in stable condition. Complications: none Post-operative Condition: stable Disposition: PACU Aftercare: routine postop
[2023-06-30 13:37] VITALS: BP 112/73; PULSE 86; RESP 16; TEMP 36.4; O2SAT 100
[2023-06-30] MEDS: KETOROLAC 30 MG/ML VIAL IV ×2 (14:09→20:07)
[2023-06-30] MEDS: ACETAMINOPHEN 325 MG TABLET 650 MG PO (20:06)
[2023-07-01] MEDS: ACETAMINOPHEN 325 MG TABLET 650 MG PO ×3 (02:03→18:01)
[2023-07-01] MEDS: OXYCODONE IR 5 MG TABLET PO ×5 (02:03→18:00)
[2023-07-01] MEDS: KETOROLAC 30 MG/ML VIAL IV (02:03)
[2023-07-01 07:18] LABS: Hematocrit 20.4 % (36-46); Hemoglobin 6.8 g/dL (12.0-16.0)
[2023-07-01] MEDS: PRENATAL VIT,CALC/IRON/FOLIC 1 TABLET 1 TAB PO (10:06)
[2023-07-01] MEDS: DOCUSATE 100 MG CAPSULE PO (10:06)
[2023-07-01 12:10] LABS: Add Manual Diff / Slide Review NO; Basophils Absolute Auto 0 /uL (0-100); Basophils Percent Auto 0.4 % (0-2); Eosinophils Absolute Auto 100 /uL (0-450); Eosinophils Percent Auto 0.6 % (2-4); Lymphocytes Absolute Auto 1400 /uL (1100-4500); Mean Corpuscular HGB Conc 32.7 % (30-36); Mean Corpuscular Hemoglobin 26.1 PG (26-34); Mean Corpuscular Volume 79.8 fL (80-100); Monocytes Absolute Auto 1300 /uL (0-900); Monocytes Percent Auto 11.1 % (3-14); Neutrophils Absolute Auto 8800 /uL (1500-7000); Neutrophils Percent Auto 75.9 % (50-75); Platelet Count 196 X10^3/uL (150-400); Red Blood Cell Count 2.45 X10^6/uL (4.0-5.2); Red Cell Distribution Width 16.9 % (11.6-14.8); White Blood Cell Count 11.6 X10^3/uL (4.5-11.0)
[2023-07-01 12:11] LABS: Hematocrit 19.5 % (36-46); Hemoglobin 6.4 g/dL (12.0-16.0)
[2023-07-01] MEDS: IBUPROFEN 600 MG TABLET PO ×2 (12:52→20:34)
--- NOTE | 2023-07-01 12:59 | P.PNOB_ITS ---
Subjective - OB Subjective Patient comments: no complaints and pain well controlled [place] baby status: doing well [place] feeding status: exclusively breast feeding Narrative: 32-year-old POD #1 s/p rLTCS on 06/30/2023. Date Patient Seen: 07/01/23 Time Patient Seen: 12:59 Interval history: Patient doing well, no concerns at this time. Pain adequately controlled. She is ambulating and tolerating regular diet. She is voiding and passing flatus, has not yet passed stool. Hemoglobin declined 10.4 on admission yesterday to 6.8 this morning, 6.4 on repeat 6 hours later. Patient denies headache, dizziness, palpitations, weakness. Exam Vital Signs (past 8 hours): Oxygen Delivery Method Room Air Narrative Exam Narrative: Gen: Patient resting in bed, NAD Resp: CTAB, no increased respiratory effort CVS: RRR Abd: Soft, appropriately tender, fundus firm, Aquacel dressing removed and incision c/d/i with Steri-Strips intact Lochia: Moderate Ext: No edema, no signs of dvt Objective Labs 07/01/23 12:00 Labs: Laboratory Results - last 24 hr 07/01/23 07/01/23 06:54 12:00 WBC 11.6 H RBC 2.45 L Hgb 6.8 L* 6.4 L* Hct 20.4 L* 19.5 L* MCV 79.8 L MCH 26.1 MCHC 32.7 RDW 16.9 H Plt Count 196 Neut % (Auto) 75.9 H Lymph % (Auto) 12.0 L Ralls % (Auto) 11.1 Eos % (Auto) 0.6 L Baso % (Auto) 0.4 Neut # (Auto) 8800 H Lymph # (Auto) 1400 [place]alls # (Auto) 1300 H Eos # (Auto) 100 Baso # (Auto) 0 Assessment & Plan Plan day: 1 plan OB: routine postop care Comments: POD #1 s/p rLTCS Clinically stable, doing well Breast feeding without difficulty Anemia: Acute on chronic due to intraoperative blood loss and hemodilution from IV fluids. Clinically asymptomatic, trend H/H and monitor for need to transfuse Time Spent With Patient Time: Total time spent is greater than 50% in coordination of care (as documented) at patient's floor/unit and/or counseling patient: Time with patient: 15-24 minutes
[2023-07-01 16:13] LABS: Add Manual Diff / Slide Review NO; Basophils Absolute Auto 0 /uL (0-100); Basophils Percent Auto 0.2 % (0-2); Eosinophils Absolute Auto 100 /uL (0-450); Eosinophils Percent Auto 0.8 % (2-4); Lymphocytes Absolute Auto 1900 /uL (1100-4500); Lymphocytes Percent Auto 16.5 % (25-40); Mean Corpuscular HGB Conc 32.7 % (30-36); Mean Corpuscular Hemoglobin 26.1 PG (26-34); Mean Corpuscular Volume 79.9 fL (80-100); Monocytes Absolute Auto 1200 /uL (0-900); Monocytes Percent Auto 10.4 % (3-14); Neutrophils Absolute Auto 8400 /uL (1500-7000); Neutrophils Percent Auto 72.1 % (50-75); Platelet Count 222 X10^3/uL (150-400); Red Blood Cell Count 2.61 X10^6/uL (4.0-5.2); Red Cell Distribution Width 17.2 % (11.6-14.8); White Blood Cell Count 11.7 X10^3/uL (4.5-11.0)
[2023-07-01 16:14] LABS: Hemoglobin 6.8 g/dL (12.0-16.0)
[2023-07-01 16:15] LABS: Hematocrit 20.9 % (36-46)
[2023-07-01 21:38] VITALS: BP 122/61; PULSE 86; RESP 15; TEMP 37.2
[2023-07-01 22:02] VITALS: BP 117/61; PULSE 88; RESP 15; TEMP 37.1
[2023-07-01] MEDS: SIMETHICONE 80 MG TABLET PO (22:18)
[2023-07-02] MEDS: ACETAMINOPHEN 325 MG TABLET 650 MG PO ×2 (00:41→08:44)
[2023-07-02] MEDS: OXYCODONE IR 5 MG TABLET PO ×2 (00:42→08:44)
[2023-07-02] MEDS: IBUPROFEN 600 MG TABLET PO ×2 (03:39→08:44)
[2023-07-02 06:21] LABS: Hematocrit 21.8 % (36-46); Hemoglobin 7.3 g/dL (12.0-16.0)
[2023-07-02] MEDS: DOCUSATE 100 MG CAPSULE PO (08:44)
[2023-07-02] MEDS: PRENATAL VIT,CALC/IRON/FOLIC 1 TABLET 1 TAB PO (08:44)
[2023-07-02] MEDS: FERROUS SULFATE 325 MG TABLET PO (08:44)
[2023-07-02] MEDS: OXYCODONE IR 10 MG TABLET PO (12:20)
--- NOTE | 2023-07-02 12:28 | P.DS_ITS ---
Discharge Providers Provider Date of admission: 06/30/23 05:12 Discharge Date: 07/02/23 Primary care physician: Cris RUTHERFORD Provider Consults: 06/30/23 13:46 Consult to Tax Form Preparer Routine Comment: Discharge provider: Patrice Lira MD Summary Hospital Course Date Patient Seen: 07/02/23 Time Patient Seen: 11:30 Diagnoses: delivery delivered Previous affecting Acute on chronic blood-loss anemia Gestational diabetes controlled on oral hypoglycemic drugs Anxiety Depression Hospital Course: Admitted for scheduled erLTCS. complicated by GDM A2 on metformin 500 mg daily, depression/ anxiety (weaned from all medications), previous CS x1. Delivery complicated by impacted head in maternal pelvis requiring vacuum device for delivery of head. The remainder of her delivery was uncomplicated. course was complicated by acute on chronic blood-loss anemia with hemoglobin drop to 6.4 mg/dL at its joshua. Patient became symptomatic with lightheadedness on ambulation and received 1 unit PRBC transfusion. Her symptoms resolved the following day and vital signs remained within normal limits throughout hospitalization. At discharge patient is ambulating well, tolerating normal diet, breast-feeding without difficulty, and pain is adequately controlled. She reports bleeding is similar to normal menses. Peripartum Data Delivery Method: Section complications: other (symptomatic acute on chronic anemia requiring transfusion) 1: Gender: Male Disposition of : home Discharge Diagnosis (1) delivery delivered: Status: Acute (2) Acute on chronic blood loss anemia: Status: Acute (3) Gestational diabetes mellitus (GDM) controlled on oral hypoglycemic drug: Status: Acute (4) Anxiety during : Status: Acute (5) Depression affecting : Status: Acute Status at Discharge Cognitive/behavioral status at discharge: at baseline, oriented Functional status at discharge: independent ambulation Overall status at discharge: patient is progressing back to baseline Time Spent with Patient Time attestation: Total time spent providing and/or coordinating discharge services: Time spent: Less than 30 minutes Objective Labs 07/02/23 06:15 Labs: Laboratory Results - last 24 hr 06/30/23 07/01/23 07/02/23 06:28 16:00 06:15 WBC 11.7 H RBC 2.61 L Hgb 6.8 L* 7.3 L Hct 20.9 L* 21.8 L MCV 79.9 L MCH 26.1 MCHC 32.7 RDW 17.2 H Plt Count 222 Neut % (Auto) 72.1 Lymph % (Auto) 16.5 L Dickson % (Auto) 10.4 Eos % (Auto) 0.8 L Baso % (Auto) 0.2 Neut # (Auto) 8400 H Lymph # (Auto) 1900 Dickson # (Auto) 1200 H Eos # (Auto) 100 Baso # (Auto) 0 Blood Type O Positive Antibody Screen Negative Crossmatch See Detail Exam Vital Signs (past 8 hours): Oxygen Delivery Method Room Air Narrative Exam Narrative: General: Well-appearing, well-nourished, no distress HEENT: Moist mucous membranes, no pallor CV: Regular rate and rhythm, no murmur auscultated Resp: CTAB, comfortable work of breathing Abdomen: Soft, bowel sounds present, fundus firm below umbilicus with appropriate tenderness, incision clean/dry/intact with skin edges well approximated Extremities: No edema, well-perfused, no calf tenderness or evidence of DVT Discharge Plan Discharge Plan Patient Disposition: Home Provider Discharge Comment: Follow-up in 1 week for incision check Discharge orders & Medications Prescriptions: New acetaminophen 325 mg Tablet 650 mg PO Q6H Qty: 60 0RF ferrous sulfate 325 mg (65 mg iron) Tablet 325 mg PO Q OTHER DAY Qty: 60 1RF docusate sodium 100 mg Capsule 100 mg PO DAILY Qty: 30 0RF ibuprofen 600 mg Tablet 600 mg PO Q6H Qty: 45 0RF simethicone [Gas Relief 80 (simethicone)] 80 mg Tablet,Chewable 80 mg PO QID PRN (Reason: Flatulence) Qty: 50 0RF oxycodone 5 mg Tablet 5 mg PO Q6H PRN (Reason: Pain, Moderate (4-6)) Qty: 20 0RF Continued pyridoxine (vitamin B6) 50 mg tablet 50 mg PO TID Qty: 90 0RF ondansetron 4 mg tablet,disintegrating See Rx Instructions PO Q8H PRN (Reason: nausea and vomiting) Qty: 30 1RF Rx Instructions: 1-2 tabs orally every 8 hours PRN; (DME) blood-glucose meter Kit See Rx Instructions .Route Qty: 1 0RF Rx Instructions: As directed for 4X daily blood sugar testing (DME) Blood Glucose Test Strip See Rx Instructions .Route Qty: 50 6RF Rx Instructions: As directed for 4x daily blood sugar testing Unisom (doxylamine) 25 mg tablet 25 mg PO BEDTIME PRN (Reason: sleep) Qty: 30 1RF (DME) lancets [Lancets,Ultra Thin] Misc See Rx Instructions .Route Qty: 200 2RF Rx Instructions: As directed for 4X daily blood sugar testing PNV [id number]-ferrous fumarate-FA [ Multivitamins] 28 mg iron- 800 mcg tablet 1 tab PO DAILY Discontinued metformin 500 mg tablet 500 mg PO DAILY Qty: 90 1RF duloxetine 60 mg capsule,delayed release(DR/EC) 60 mg PO DAILY Follow up/Referrals: Patrice Lira MD [Physician] - (please call office, monday morning to schedule a one week incision check and a six week appointment. ) Provider,Cris RUTHERFORD [Primary Care Provider] - Diet/Activity/Treatments Diet: Regular Activity: As tolerated Visit Report/Discharge Packet Instructions: DI for Depression Stand Alone Forms: Discharge: Care, Patient Portal/API, Stroke Signs & Symptoms Discharge Data Primary Care Provider: Cris Cano
== END 2023-07-02 13:00 | disposition home or self-care (01) | DRG 788 ==
PROVIDERS: Admitting Provider Family Medicine; Referring Provider Family Medicine; Visit Provider Family Medicine
PROC: 10D00Z1 Extraction of Products of Conception, Low, Open Approach (ICD-10-PCS; CPT 59514; principal; 2023-06-30 07:45)
DX: O34.211 Maternal care for low transverse scar from previous cesarean delivery (principal); O24.425 Gestational diabetes mellitus in childbirth, controlled by oral hypoglycemic drugs; Z3A.38 38 weeks gestation of pregnancy; Z37.0 Single live birth; O99.892 Other specified diseases and conditions complicating childbirth; N73.6 Female pelvic peritoneal adhesions (postinfective)
CPT/HCPCS: 36415; 36430; 59050; 59510; 59514; 85014; 85018; 85025; 86850; 86900; 86901; P9016; J0136; J0690; J1100; J1885; J2270; J2274; J2405; J3010; J3410